=== PATIENT | female | born 1970 | race Caucasian/White ===

== ENCOUNTER 2017-11-25 10:29 | Emergency (ER) | payer OTHER ==
--- NOTE | 2017-11-25 10:53 | ED ---
Complex/Multi-Sys Presentation - HPI Summary HPI Summary: This patient is a 47 year old F presenting to [facility] with a chief complaint of left sided dental pain for the past two days. Today symptoms have worsened with left ear pain and swelling to the left side of the face. Patient suspects infection. She additionally reports cloudy urine and burning with urination. She denies urgency. Patient took three Aleve at 8:00 this morning. Patient is unable to get appointment with her dentist until 12/16/17. - History Of Current Complaint Chief Complaint: EDDentalPain Time Seen by Provider: 11/25/17 10:36 Hx Obtained From: Patient Onset/Duration: Lasting Days Timing: Constant Severity Currently: Mild Severity Initially: Moderate Location: Pain At: - left teeth, left face, left ear Character: Throbbing Associated Signs And Symptoms: Positive: Other - UTI symptoms - Allergies/Home Medications Allergies/Adverse Reactions: Allergies Allergy/AdvReac Type Severity Reaction Status Date / Time No Known Allergies Allergy Verified 11/16/15 09:07 Home Medications: Home Medications Naproxen Sodium [Aleve] 660 mg PO TID PRN 11/25/17 [History Confirmed 11/25/17] PMH/Surg Hx/FS Hx/Imm Hx Endocrine/Hematology History: Denies: Hx Blood Disorders Respiratory History: Reports: Hx Asthma GI History: Denies: Hx Gastroesophageal Reflux Disease, Hx Gastrointestinal Bleed, Hx Ulcer History: Denies: Hx Acute Renal Failure, Hx Chronic Renal Failure Psychiatric History: Denies: Hx Anxiety, Hx Depression Infectious Disease History: No Infectious Disease History: Reports: History Other Infectious Disease - 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 Negative: frequency Positive: Edema - left face All Other Systems Reviewed And Are Negative: Yes Physical Exam - Summary Physical Exam Summary: Appearance: The patient is well-nourished in no acute distress and in no acute pain. Skin: The skin is warm and dry and skin color reflects adequate perfusion. HEENT: The head is normocephalic and atraumatic. The pupils are equal and reactive. The conjunctivae are clear and without drainage. Nares are patent and without drainage. Mouth reveals moist mucous membranes and the throat is without erythema and exudate. Carries are seen at the left lower teeth. There is no evidence of cellulitis or abscess. The external ears are intact. The ear canals are patent and without drainage. The tympanic membranes are intact. Neck: The neck is supple with full range of motion and non-tender. There are no carotid bruits. There is no neck vein distension. Respiratory: Chest is non-tender. Lungs are clear to auscultation and breath sounds are symmetrical and equal. Cardiovascular: Heart is regular rate and rhythm. There is no murmur or rub auscultated. There is no peripheral edema and pulses are symmetrical and equal. Abdomen: The abdomen is soft and non-tender. There are normal bowel sounds heard in all four quadrants and there is no organomegaly palpated. Musculoskeletal: There is no back tenderness noted. Extremities are non-tender with full range of motion. There is good capillary refill. There is no peripheral edema or calf tenderness elicited. Neurological: Patient is alert and oriented to person, place and time. The patient has symmetrical motor strength in all four extremities. Cranial nerves are grossly intact. Deep tendon reflexes are symmetrical and equal in all four extremities. Psychiatric: The patient has an appropriate affect and does not exhibit any anxiety or depression. Triage Information Reviewed: Yes Vital Signs On Initial Exam: Initial Vitals Temp Pulse Resp BP Pulse Ox 97.8 F 69 18 152/95 95 11/25/17 10:33 11/25/17 10:33 11/25/17 10:33 11/25/17 10:33 11/25/17 10:33 Vital Signs Reviewed: Yes Diagnostics - Vital Signs Vital Signs Temp Pulse Resp BP Pulse Ox 11/25/17 10:33 97.8 F 69 18 152/95 95 - Laboratory Lab Statement: Any lab studies that have been ordered have been reviewed, and results considered in the medical decision making process. Complex Multi-Symp Course/Dx Course Of Treatment: Ms. Villegas presented complaining of a toothache on the left side for several days but swelling this morning when she woke up. Her exam showed some carried tooth no cellulitis or abscess evident with very mild if any swelling and no lymphadenopathy. She was worried about her urine being discolored and a UA was obtained which is unremarkable. She'll be discharged with Jose Paez for pain and recommended follow-up with a dentist. - Diagnoses Provider Diagnoses: Pain, dental Discharge - Sign-Out/Discharge Documenting (check all that apply): Patient Departure - discharge - Discharge Plan Condition: Stable Disposition: HOME Prescriptions: HYDROcodone/ACETAMIN 5-325 MG* [[place] 5-325 TAB*] 1 tab PO Q6H PRN #20 tab MDD 4 PRN Reason: Pain Penicillin VK TAB* [Penicillin VK 250 mg Tab*] 500 mg PO QID #40 tab Patient Education Materials: Toothache (ED) Referrals: Rosa Marquez DMD [Doctor of Dental Medicine] - 1 Week (Follow up with this dentist or another dentist regarding your symptoms. ) Additional Instructions: RETURN TO THE EMERGENCY DEPARTMENT FOR CHANGING OR WORSENING SYMPTOMS. - Billing Disposition and Condition Condition: STABLE Disposition: Home - Attestation Statements Document Initiated by Ayshaibe: Yes Documenting Scribe: Soledad Patricia Provider For Whom Kendell is Documenting (Include Credential): Christiano Abreu MD Scribe Attestation: ISoledad, scribed for Christiano Abreu MD on 11/25/17 at 1636. Scribe Documentation Reviewed: Yes Provider Attestation: The documentation as recorded by the Soledad oreilly accurately reflects the service I personally performed and the decisions made by me, Christiano Abreu MD
[2017-11-25] MEDS ORDERED: HYDROcodone/ACETAMIN 5-325 MG* 1 TAB PO ONE (12:13)
[2017-11-25 13:01] LABS: Urine Appearance Cloudy; Urine Blood 2+ (Negative); Urine Color Yellow; Urine Ketones Negative (Negative); Urine Protein Negative (Negative); Urine Red Blood Cell Trace(0-2/hpf) (Absent); Urine Specific Gravity 1.019 (1.010-1.030); Urine Urobilinogen Negative (Negative); Urine White Blood Cell Trace(0-5/hpf) (Absent)
[2017-11-25 13:46] VITALS: BP 158/86
== END 2017-11-25 13:44 | disposition home or self-care (01) ==
LOC: ED 10:29
DX: K08.89 Other specified disorders of teeth and supporting structures (principal); K02.9 Dental caries, unspecified
CPT/HCPCS: 81003; 81015; 87086; 99282

== ENCOUNTER 2017-11-28 09:58 | Emergency (ER) | payer OTHER ==
[2017-11-28] MEDS ORDERED: Tetracaine 0.5% OPTH.SOL 15ML* BTL LEFT EYE ONE (10:39)
[2017-11-28] MEDS ORDERED: Tetracaine 0.5% OPTH.SOL 4 ML* 1 DROP BTL ONE (11:13)
--- NOTE | 2017-11-28 11:32 | ED ---
Skin Complaint - HPI Summary HPI Summary: This patient is a 47 year old F presenting to [facility] with a chief complaint of left-sided facial swelling and pain since 11/24/17. The pt was in the ED on for facial swelling, and was given ABx/has been taking hydrocodone and Aleve for pain. Since, she endorses a very tender and erythematous rash on the left side of her chin, adenoid swelling and pain, difficulty opening her mouth, left eye, ear, and lower left molar pain, FERNÁNDEZ, yellow spots in her vision (denies diplopia, blurry vision), and a sore throat. Pt denies CP, SOB, abd pain, back pain, and N/V/D. She endorses anxiety (more than baseline) secondary to school stress (nursing), and father passing recently. - History of Current Complaint Chief Complaint: EDDentalPain Stated Complaint: FACIAL SWELLING Hx Obtained From: Patient Onset/Duration: Started Days Ago, Still Present, Worse Since - developed rash Timing: Constant Onset Severity: Moderate Current Severity: Severe Pain Intensity: 8 Pain Scale Used: 0-10 Numeric Skin Location: Other: - left sided face, head, and neck Character: Swelling, Pain, Redness, Raised Alleviating Symptom(s): Treatment RN COMMUNITY: - hydrocodone, aleve Associated Signs & Symptoms: Rash, Tenderness - Allergy/Home Medications Allergies/Adverse Reactions: Allergies Allergy/AdvReac Type Severity Reaction Status Date / Time No Known Allergies Allergy Verified 11/28/17 09:59 PMH/Surg Hx/FS Hx/Imm Hx Endocrine/Hematology History: Denies: Hx Blood Disorders Respiratory History: Reports: Hx Asthma GI History: Denies: Hx Gastroesophageal Reflux Disease, Hx Gastrointestinal Bleed, Hx Ulcer History: Denies: Hx Acute Renal Failure, Hx Chronic Renal Failure Sensory History: Reports: Hx Contacts or Glasses Denies: Hx Legally Blind, Hx Deafness Opthamlomology History: Reports: Hx Contacts or Glasses Denies: Hx Legally Blind EENT History: Denies: Hx Deafness Psychiatric History: Reports: Hx Anxiety Denies: Hx Depression - Immunization History Date of Tetanus Vaccine: 2018 Date of Influenza Vaccine: 2017 Infectious Disease History: No Infectious Disease History: Reports: History Other Infectious Disease - 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 Negative: Blurred Vision, Diplopia Positive: Dental Pain, Sore Throat, Ear Ache, Other - left adenoid pain and swelling Negative: Chest Pain Negative: Shortness Of Breath Negative: Abdominal Pain Positive: no symptoms reported Positive: Decreased ROM - jaw, Edema - adenoids (L). Negative: Myalgia - back pain Positive: Rash - left chin Positive: Headache Positive: Anxious All Other Systems Reviewed And Are Negative: No Physical Exam - Summary Physical Exam Summary: Appearance: Alert, conversive, nontoxic appearing Skin: Warm, dry, no mottling or contusions. A few unilateral lesions to the left chin exclusively TTP. No lesions to ear. HEENT: EOMI, PERRL, moist mucous membranes. No foreign bodies seen s/p everting eyelid (L), no abrasions or dendritic lesions. No lesions to ear, able to visualize right TM, unable to visualize left TM due to cerumen in external auditory canals. Oral: Multiple caries to upper teeth, no apical abscess, no obvious gingivitis. Tooth number 20 chipped. Neck: No masses on the neck, supple. Slightly tender on the left, left lymph adenopathy. Respiratory: Clear to auscultation, breath sounds present, no rales, no rhonchi , no wheezes Cardiovascular: RRR, pulses are symmetrical in both lower and upper extremities Abdomen: Soft, non-tender Bowel Sounds: Present Musculoskeletal: No CVA tenderness, no obvious deformity, moving all extremities in a grossly normal manner Neurological: A&Ox3, CN II-XII Intact, moving all extremities symmetrically Psychiatric: Normal affect and mood Triage Information Reviewed: Yes Vital Signs On Initial Exam: Initial Vitals Temp Pulse Resp BP Pulse Ox 96.5 F 76 18 144/108 96 11/28/17 10:00 11/28/17 10:00 11/28/17 10:00 11/28/17 10:11/28/17 10:00 Vital Signs Reviewed: Yes Diagnostics - Vital Signs Vital Signs Temp Pulse Resp BP Pulse Ox 11/28/17 10:00 96.5 F 76 18 144/108 96 - Laboratory Lab Statement: Any lab studies that have been ordered have been reviewed, and results considered in the medical decision making process. Course/Dx - Course Course Of Treatment: 47 y/o F comes to the ED for left sided facial rash and swelling, and dental pain. The patient was in the ED for facial swelling on 11/25, and was d/c'd with abx. Will treat patient for her dental caries as well as her zoster to the face with concommitent dental jelly. Ocular exam shows no dendritic lesions, will discharge patient on acyclovir and prednazone, and penacilin for her dental jelly. She has an established dentist whom she will follow up with. Will write patient a work note for friday. - Diagnoses Provider Diagnoses: Dental caries, Zoster Discharge - Sign-Out/Discharge Documenting (check all that apply): Patient Departure - discharge - Discharge Plan Condition: Stable Disposition: HOME Referrals: No Primary Care Phys,NOPCP [Primary Care Provider] - - Attestation Statements Document Initiated by Scribe: Yes Documenting Scribe: Jez Royal Provider For Whom Scribe is Documenting (Include Credential): Dr. Leana Redmond MD Scribe Attestation: Jez Alicea, scribed for Dr. Leana Redmond MD on 11/28/17 at 1132.
[2017-11-28 12:10] VITALS: BP 172/92
== END 2017-11-28 12:09 | disposition home or self-care (01) ==
LOC: ED 09:58
DX: K02.9 Dental caries, unspecified (principal); B02.9 Zoster without complications; F17.200 Nicotine dependence, unspecified, uncomplicated
CPT/HCPCS: 99282; A9270-GY